=== PATIENT | female | born 1975 | race Caucasian/White ===

== ENCOUNTER 2022-08-30 12:39 | Emergency (ER) | payer MEDICAID ==
[~2022-08-30] VITALS: Ht 160 cm; Wt 59.0 kg
[2022-08-30] MEDS ORDERED: ACETAMINOPHEN 325MG TABLET PO ONE (17:15)
[2022-08-30] MEDS ORDERED: IBUP-2029 MT (18:23)
[2022-08-30 18:56] VITALS: BP 121/71
== END 2022-08-30 19:01 | disposition home or self-care (01) ==
LOC: ER 12:39
DX: S53.401A Unspecified sprain of right elbow, initial encounter (principal); S63.501A Unspecified sprain of right wrist, initial encounter; W18.39XA Other fall on same level, initial encounter; Y93.89 Activity, other specified; Y92.89 Other specified places as the place of occurrence of the external cause; Y99.8 Other external cause status
CPT/HCPCS: 71045; 73030; 73070; 73100; 73560; 99284